=== PATIENT | male | born 1955 | race Caucasian/White ===

== ENCOUNTER 2020-09-03 14:44 | Outpatient (CLI) | payer BC, SELFPAY ==
--- NOTE | 2020-09-03 15:28 | ECG_ITS ---
[facility] Test Date: 2020-09-03 Pat Name: Pan Olivo Department: Room: Gender: Male Maintenance Dispatcher: : [id number] Requested By: Percy Arellano Order Number: [id number] Gabby MD: Jose Suazo M.D. Measurements Intervals [place] Rate: 66 P: 23 MS: 164 QRS: 1 QRSD: 84 T: 27 QT: 375 QTc: 393 Interpretive Statements SINUS RHYTHM LOW QRS VOLTAGE IN PRECORDIAL LEADS [QRS DEFLECTION < 1.0 mV IN CHEST LEADS] No previous ECG available for comparison Electronically Signed On 09-04-2020 17:15:49 REBEAMER by oJse Suazo M.D. [id number] f
[2020-09-03 16:07] LABS: Basophils % 0.5 %; Eosinophils # 0.2 10^3/uL (0.0-0.8); Eosinophils % 2.1 %; Hematocrit 45.9 % (42.0-52.0); Hemoglobin 15.5 g/dL (11.7-16.6); Lymphocytes # 1.8 10^3/uL (0.8-4.8); Mean Corpuscular HGB Conc 33.8 g/dL (30.0-36.0); Mean Corpuscular Volume 88.8 fL (80-94); Mean Platelet Volume 10.8 fL (7.4-10.4); Monocytes # 0.7 10^3/uL (0.2-0.9); Monocytes % 8.9 %; Neutrophils # 5.32 10^3/uL (1.8-7.7); Nucleated Red Blood Cells % 0 %; Platelet Count 275 10^3/cmm (130-400); Red Blood Count 5.17 10^6/uL (4.1-5.3); Red Cell Distribution Width 12.5 % (12.1-15.1); White Blood Count 8.1 10^3/uL (4.0-10.0)
[2020-09-03 17:23] LABS: Blood Urea Nitrogen 14 mg/dL (8-23); Carbon Dioxide 26 mmol/L (22-29); Chloride 100 mmol/L (98-107); Glomerular Filtration Rate 67.4 mL/min (90-130); Glucose 102 mg/dL (65-115); Osmolality Calculated 289 mOsm/kg (285-295); Sodium 139 mmol/L (136-145)
[2020-09-05 16:35] LABS: Calcium 9.3 mg/dL (8.5-10.5)
== END 2020-09-03 14:45 | disposition home or self-care (01) ==
PROVIDERS: PCP Family Medicine; Visit Provider Specialist
DX: Z01.810 Encounter for preprocedural cardiovascular examination (principal); Z01.812 Encounter for preprocedural laboratory examination
CPT/HCPCS: 36415; 80048; 85025; 93005

== ENCOUNTER 2021-01-25 14:01 | Outpatient (CLI) | payer BC, SELFPAY ==
--- NOTE | 2021-01-25 14:30 | MR_ITS ---
WS: [id number] MRI NECK with and without CONTRAST. COMPARISON: 09/14/2012 CT Multiplanar, multisequence imaging is performed with and without contrast. History: Sinus surgery September 2020. Left-sided facial numbness. Defect in the medial wall of the LEFT maxillary sinus is probably from the prior surgery. There is ve ry mild mucoperiosteal thickening with no air-fluid levels in the LEFT maxillary sinus. There is no f luid or defect noted within the cribriform plate. No intracranial abscess identified. There are no en hancing masses and the soft tissues around the brainstem are normal. There are several small lymph no franci at level IIa on the LEFT. Largest lymph node is 6 mm. The parotid gland and submandibular gland a re normal. Cannot confirm facial nerve enhancement. Disc bulging at several levels contacting the ventral cord in the cervical spine. There is mild cord contact from disc osteophyte complex at C3-4, C5-6 and C6-7. Signal within the cord is normal. No inf erior displacement of cerebellar tonsils. No abnormality at the lung apices. MR/MR orbit face neck wo/w* [id number] IMPRESSION: 1. No significant abnormality noted within the LEFT neck. There is minimal muc operiosteal thickening in the LEFT maxillary sinus. 2. No intracranial abscess identified. No abnormality noted at the brainstem o r the cranial nerves. 3. Small subcentimeter LEFT cervical chain lymph nodes.
== END 2021-01-25 14:02 | disposition home or self-care (01) ==
LOC: RADSHAW 14:15
PROVIDERS: PCP Family Medicine; Visit Provider Specialist
DX: J32.0 Chronic maxillary sinusitis (principal)
CPT/HCPCS: 70543; A9579